=== PATIENT | male | born 1975 | race Caucasian/White ===

== ENCOUNTER 2023-03-19 06:19 | Emergency (ER) | payer BC, SELFPAY ==
[2023-03-19] VITALS (16 sets, daily range): BP systolic 118–161; BP diastolic 76–101; PULSE 108–118; RESP 17–20; TEMP 36.6; O2SAT 94–100
--- NOTE | ~2023-03-19 | CT_ITS ---
CT of the Abdomen and Pelvis: Indication: Perineal abscess Technique: 2.5 mm axial scans were obtained through the abdomen and pelvis following intravenous adm inistration of 100 cc of Omnipaque 350. Dose reduction technique was used on this scan by utilizing a utomated exposure control and iterative reconstruction technique. The dose-length product (DLP) was 1 576.02 mGy-cm. Findings: Scans through the lung bases are unremarkable. The liver, spleen, pancreas, adrenals and kidneys are within normal limits. Gallbladder is absent. No evidence of aortic aneurysm. No lymphadenopathy. No bowel obstruction or bowel wall thickening. There is no evidence to suggest acute appendicitis. Images through the pelvis were performed. Urinary bladder unremarkable. Prostate gland and seminal ve sicles are unremarkable. Fat-containing inguinal hernia is present. No ascites. There is extensive soft tissue gas in the left perineum, focally extending into the left hemiscrotum, with extensive sounding soft tissue infiltration. No drainable fluid collection clearly evident. Impression: Extensive soft tissue gas in the left perineum focally extending to the left hemiscrotum with surroun ding soft tissue infiltration. 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 Fat-containing left inguinal hernia. Case discussed with the [facility] emergency room doctor the time of this reading. Reviewed, dictated and finalized at location . Impression: Extensive soft tissue gas in the left perineum focally extending to the left he miscrotum with surrounding soft tissue infiltration. Findings are consistent wi th Mamie's gangrene. Fat-containing left inguinal hernia. Case discussed with the [facility] emergency room doctor the time of this reading .
--- NOTE | 2023-03-19 06:29 | ED.GENADULT ---
HPI - General Adult General Chief complaint: Skin/Abscess/Foreign Body Stated complaint: Abcess Time Seen by Provider: 03/19/23 06:21 History of Present Illness HPI narrative: Richard is a previously healthy 47M (but has not seen a healthcare provider in 10 years) that presented to the ED with pain and swelling in his groin. It started as a dime sized lesion 2 days ago and has enlarged to the size of a large orange. He has had fevers up to 101, increasing pain, swelling and redness as well as nausea. He has been taking Tylenol for the pain. Related Data Home Medications Medication Instructions Recorded Confirmed No Home Medications 03/19/23 03/19/23 Allergies Allergy/AdvReac Type Severity Reaction Status Date / Time No Known Allergies Allergy Unverified 06/19/14 09:56 Review of Systems Review of Systems: All systems reviewed & are unremarkable except as noted in HPI and below PMFSH Family History Family History (Updated 06/03/14 @ 08:52 by DOCTOR UNKNOWN) Father Family history of thyroid disease Other Family history of malignant neoplasm Social History Social History Smoking status: Current every day smoker Alcohol intake: current Exam Const: General: healthy appearing and no acute distress Nutritional Appearance: well nourished Orientation/consciousness: patient oriented x3 HENMT: Head: normal to inspection Ears: external ears normal and TM's normal bilaterally Face/Nose/Sinus: Normal external nose present Face and sinus: normal facial exam Eyes: Conjunctivae: conjunctivae normal Pupils: Equal, round and reactive pupils present EOM: EOMs intact bilaterally Neck: Neck: normal visual inspection Chest: Chest palpation & inspection: normal inspection of the chest Resp: Effort & Inspection: tachypneic Auscultation: clear to auscultation bilaterally Cardio: Rate: tachycardic Rhythm: regular rhythm : Other: Swollen scrotum. Left groin/perineum was swollen, erythematous and TTP Skin: Other: Erythema and swelling in the left groin and scrotum Neuro: General: patient oriented x3 and moves all extremities Cranial nerves: Yes Nystagmus not present Speech: normal speech Extrem: General: normal to inspection Psych: Mental Status: mental status grossly normal Course Course Emergency Course: Ordered labs, blood cultures, CT, normal saline, and antibiotics with high concern for sepsis. Care transferred to Dr. Gonzales at 0700 Vital Signs Vital signs: Vital Signs Temperature 97.9 F 03/19/23 06:21 Pulse Rate 118 H 03/19/23 06:21 Respiratory Rate 20 03/19/23 06:21 Blood Pressure 130/99 H 03/19/23 06:21 Pulse Oximetry 100 03/19/23 06:21 Oxygen Delivery Room Air 03/19/23 06:21 Temperature 97.9 F 03/19/23 10:57 Pulse Rate 113 H 03/19/23 10:57 Respiratory Rate 17 03/19/23 10:57 Blood Pressure 145/93 H 03/19/23 10:57 Pulse Oximetry 94 03/19/23 10:57 Oxygen Delivery Room Air 03/19/23 10:57 Medical Decision Making Vital Signs Vital Signs: Vital Signs Temperature 97.9 F 03/19/23 06:21 Pulse Rate 118 H 03/19/23 06:21 Respiratory Rate 20 03/19/23 06:21 Blood Pressure 130/99 H 03/19/23 06:21 Pulse Oximetry 100 03/19/23 06:21 Oxygen Delivery Room Air 03/19/23 06:21 Temperature 97.9 F 03/19/23 10:57 Pulse Rate 113 H 03/19/23 10:57 Respiratory Rate 17 03/19/23 10:57 Blood Pressure 145/93 H 03/19/23 10:57 Pulse Oximetry 94 03/19/23 10:57 Oxygen Delivery Room Air 03/19/23 10:57 Lab Data 03/19/23 06:31 03/19/23 09:40 Labs: Lab Results 03/19/23 03/19/23 03/19/23 Range/Units 06:22 06:31 07:45 WBC 25.2 H* (4.8-10.8) K/mm3 RBC 5.21 (4.70-6.10) M/mm3 Hgb 15.1 (14.0-18.0) g/dL Hct 43.7 (40.0-54.0) % MCV 83.9 (78.0-102.0) fL MCH 29.0 (27.0-31.0) pg MCHC 34.6 (32.0-36.0) g/dL RDW 12.8 (11.6-14.4) % Plt C
[2023-03-19] MEDS: ONDANSETRON HCL ODT 4 MG TABLET PO (06:32)
[2023-03-19] MEDS: SODIUM CHLORIDE 0.9% IV 1,000 ML 999 ML IV CONT ×3 (06:33→08:12)
[2023-03-19] MEDS: MORPHINE SULFATE (*CRX) 4 MG/ML INJ IV PUSH ×2 (06:33→08:52)
[2023-03-19 06:45] LABS: Hematocrit 43.7 % (40.0-54.0); Hemoglobin 15.1 g/dL (14.0-18.0); Mean Corpuscular HGB Conc 34.6 g/dL (32.0-36.0); Mean Corpuscular Volume 83.9 fL (78.0-102.0); Mean Platelet Volume 10.8 fl (8.7-11.0); Platelet Count Result 219 K/mm3 (150-420); Red Blood Count 5.21 M/mm3 (4.70-6.10); Red Cell Distribution Width 12.8 % (11.6-14.4)
[2023-03-19] MEDS: PIPERACILLN/TAZ 3.375GM/NS50ML 3.375 GM/50 ML BAG IVPB (06:46)
[2023-03-19 06:48] LABS: White Blood Count 25.2 K/mm3 (4.8-10.8)
[2023-03-19 06:57] LABS: Alanine Aminotransferase 23 U/L (16-63); Albumin Level 2.9 g/dL (3.4-5.0); Alkaline Phosphatase 115 U/L (46-116); Anion Gap 19 mmol/L (8-16); Aspartate Amino Transferase < 10 U/L (15-37); Bilirubin,Total 0.9 mg/dL (0.00-1.00); Blood Urea Nitrogen 9 mg/dL (7-18); Calcium 9.2 mg/dL (8.5-10.1); Carbon Dioxide 17 mmol/L (21-32); Chloride 92 mmol/L (98-108); Estimated CRCL calculation 98 ml/min; Estimated Glomerular Filt Rate > 60; Glucose 359 mg/dL (70-99); Osmolality Calculated 278 mOsm/kg (285-295); Potassium 3.9 mmol/L (3.5-5.1); Sodium 128 mmol/L (136-145); Total Protein 7.9 g/dL (6.4-8.2)
[2023-03-19 07:00] LABS: Band Neutrophils Percent 1 % (0-6); Basophils Percent Manual 0 % (0-1); Eosinophils Percent Manual 0 % (1-6); Lymphocytes Absolute Manual 2.01 K/mm3 (1.1-4.5); Lymphocytes Percent Manual 8 % (18-44); Monocytes Absolute Manual 1.51 K/mm3 (0.1-0.90); Monocytes Percent Manual 6 % (3-9); Neutrophils Absolute Manual 21.67 K/mm3 (1.3-6.7); Neutrophils Percent Manual 85 % (46-73); Platelet Estimate Adequate (Adequate); Schistocytes None Seen (NORMAL); Total Cells Counted 100
[2023-03-19 07:02] LABS: Lactic Acid Reflex 1.5 mmol/L (0.4-2.0)
[2023-03-19 07:12] LABS: CRP > 25.0 mg/dL (0.0-0.9)
--- NOTE | 2023-03-19 07:34 | ED.GENADULT ---
HPI - General Adult General Chief complaint: Skin/Abscess/Foreign Body Stated complaint: Abcess Time Seen by Provider: 03/19/23 06:21 History of Present Illness HPI narrative: I TOOK OVER FROM THE PREVIOUS PROVIDER IN THE MANAGEMENT OF THIS PATIENT. PLEASE REFER TO THE NOTE FOR FURTHER DETAILS. In brief, the patient is a previously healthy 47 year old male who has not seen a healthcare provider in 10 years. He has borderline diabetes. He smokes cigarettes. He has had a prior cholecystectomy and right arm orthopedic surgery. He presented to our ED with pain and swelling in his left scrotum and groin area that started as a dime sized lesion 2 days ago and subsequently has enlarged to the size of a large orange. He has had fevers up to 101 degrees Fahrenheit, increasing pain, swelling and redness as well as nausea.? There is no drainage from the area. The patient has had prior abscesses/boils that he has popped; none have required surgical debridement or drainage in a healthcare facility. The patient received Zosyn and vancomycin in the emergency room. He was tachycardic but not hypotensive, heart rate 118. IV fluids 1 L was administered. Labs and CT were signed out to me. See results below. Related Data Home Medications Medication Instructions Recorded Confirmed No Home Medications 03/19/23 03/19/23 Allergies Allergy/AdvReac Type Severity Reaction Status Date / Time No Known Allergies Allergy Unverified 06/19/14 09:56 Review of Systems Review of Systems: All systems reviewed & are unremarkable except as noted in HPI and below Constitutional: Constitutional: Denies chills, Denies excessive sweating, Denies fatigue, Reports fever(s), Denies headache(s) and Denies weakness Eyes: Eyes: Denies change in vision and Denies photophobia ENT: Denies dysphagia, Denies dizziness, Denies headache(s), Denies lip swelling, Denies nasal congestion, Denies sore throat and Denies tongue swelling Cardiovascular: Cardiovascular: Denies chest pain, Denies syncope, Denies rapid heart rate and Denies dyspnea Respiratory: Respiratory: Denies cough, Denies dyspnea and Denies wheezing Gastrointestinal: Gastrointestinal: Denies abdominal pain, Denies constipation, Denies dysphagia, Denies diarrhea, Denies nausea and Denies vomiting Genitourinary: Genitourinary: Denies hematuria, Denies dysuria, Denies urinary frequency and Denies urinary urgency Musculoskeletal: Musculoskeletal: Denies back pain, Denies myalgias, Denies arthralgias, Denies joint swelling and Denies numbness Integumentary/Breasts: Skin/Breast: Denies pruritus, Reports erythema (in left groin/scrotum area) and Denies rash Neurologic: Denies confusion, Denies dizziness, Denies syncope, Denies headache(s), Denies focal weakness, Denies numbness and Denies weakness Psychiatric: Psychiatric: Denies anxiety and Denies confusion Endocrine: Endocrine: Denies excessive sweating and Denies fatigue Hematologic/Lymphatic: Hematologic/Lymphatic: Denies easy bleeding and Denies easy bruising Allergic/Immunologic: Allergic/Immunologic: Denies lip swelling, Denies tongue swelling and Denies wheezing PMFSH Family History Family History (Updated 06/03/14 @ 08:52 by DOCTOR UNKNOWN) Father Family history of thyroid disease Other Family history of malignant neoplasm Social History Social History Smoking status: Current every day smoker Alcohol intake: current Exam Const: General: healthy appearing, no acute distress, alert, well nourished and obese (weight 121 kg) Nutritional Appearance: well nourished Orientation/consciousness: patient oriented x3 Limitations: no limitations HENMT: Head: normal to inspection Ears: external ears normal Face/Nose/Sinus: normal facial exam Face and sinus: normal facial exam Mouth: Yes moist mucous membranes Throat: posterior oropharynx normal Eyes: Conjunctivae: conjunctivae normal Pupils: Equal, round and reactive pupils pre
[2023-03-19] MEDS: VANCOMYCIN 1,250 MG/NS 250 ML 1,250 MG/250 ML BAG 166.67 MG IVPB ×2 (07:44→09:08)
[2023-03-19 07:47] LABS: Glucose Point of Care 305 mg/dl (65-105)
[2023-03-19] MEDS: CLINDAMYCIN 600 MG/D5W 50 ML 600 MG/50 ML PIGGYBACK 100 MG IVPB (08:12)
[2023-03-19 08:28] LABS: Acetone Small (Negative)
[2023-03-19 08:49] LABS: Appearance Urine Clear (Clear); Bilirubin Urine Negative (Negative); Blood Urine 1+ (Negative); Color Urine Light Yellow (Yellow); Glucose Urine UA 3+ (Negative); Ketones Urine 3+ (Negative); Leukocyte Esterase Ur Negative LEU/UL (Negative); Nitrate Urine Negative (Negative); Protein Urine 2+ (Negative); Specific Grav Ur 1.015 (1.010-1.020); Urobilinogen Urine 0.2 mg/dL (0.2-1.0)
[2023-03-19 08:55] LABS: Add Urine Microscopic? YES; RBC Urine 0-2 /hpf (0-2); Squamous Epithelial Cell Urine Few /hpf (Few); WBC Urine 0-3 /hpf (0-3)
[2023-03-19 08:56] LABS: Bacteria Urine 1+ /hpf; Hyaline Casts Urine Present /lpf
[2023-03-19 09:11] LABS: Glucose Point of Care 308 mg/dl (65-105)
[2023-03-19] MEDS: INSULIN HUMAN REGULAR (*BKC) 1,000 UNITS/10 ML VIAL 7 UNITS IV PUSH (09:12)
[2023-03-19 09:17] LABS: Erythrocyte Sedimentation Rate 11 mm/hr (0-15)
[2023-03-19 09:46] LABS: Device ROOM AIR; HCO3 VBG 19.8 mEq/l (24.0-30.0); PCO2 VBG 31.9 mmHg (42.0-48.0); pH VBG 7.41 (7.33-7.43)
[2023-03-19 09:47] LABS: Glucose Point of Care 269 mg/dl (65-105)
[2023-03-19 10:00] LABS: Alanine Aminotransferase 22 U/L (16-63); Albumin Level 2.5 g/dL (3.4-5.0); Alkaline Phosphatase 99 U/L (46-116); Anion Gap 13 mmol/L (8-16); Aspartate Amino Transferase 14 U/L (15-37); Bilirubin,Total 0.7 mg/dL (0.00-1.00); Blood Urea Nitrogen 7 mg/dL (7-18); Calcium 8.4 mg/dL (8.5-10.1); Carbon Dioxide 21 mmol/L (21-32); Chloride 99 mmol/L (98-108); Estimated CRCL calculation 118 ml/min; Estimated Glomerular Filt Rate > 60; Glucose 271 mg/dL (70-99); Osmolality Calculated 284 mOsm/kg (285-295); Potassium 3.7 mmol/L (3.5-5.1); Sodium 133 mmol/L (136-145); Total Protein 6.8 g/dL (6.4-8.2)
[2023-03-19] MEDS: SODIUM CHLORIDE 0.9% IV 250 ML BAG 500 ML IVPB (10:21)
[2023-03-19] MEDS: SODIUM CHLORIDE 0.9% IV 1,000 ML 150 ML IV CONT (10:22)
[2023-03-19 10:48] LABS: Glucose Point of Care 250 mg/dl (65-105)
[2023-03-19 18:24] LABS: Procalcitonin 0.5 ng/mL
--- NOTE | 2023-03-25 12:53 | PC.NURSE ---
FINAL BLOOD CULTURE REPORT: NO GROWTH AFTER 5 DAYS, NO FURTHER TREATMENT OR ACTION NEEDED.
--- NOTE | 2023-03-27 12:40 | PC.NURSE ---
FINAL BLOOD CULTURE RESULTS X2: NO GROWTH AFTER 5 DAYS. NO ACTION NEEDED.
== END 2023-03-19 10:57 | disposition short-term general hospital (02) ==
PROVIDERS: Family Medicine; Emergency Provider Emergency Medicine; PCP Internal Medicine
DX: N49.3 Fournier gangrene (principal); E11.65 Type 2 diabetes mellitus with hyperglycemia; E87.1 Hypo-osmolality and hyponatremia; E11.10 Type 2 diabetes mellitus with ketoacidosis without coma
CPT/HCPCS: 36415; 74177; 80053; 81001; 82010; 82803; 82948; 83605; 84145; 85025; 85652; 86140; 87040; 96361; 96365; 96366; 96367; 96375; 96376; 99291; A9270; J1815; J2270; J2543; J3370; J7030; J7050; Q9967

== ENCOUNTER 2023-08-22 19:37 | Emergency (ER) | payer BC, SELFPAY ==
--- NOTE | ~2023-08-22 | CT_ITS ---
EXAMINATION: CT lumbar spine wo con DATE: 08/22/2023 21:50 INDICATION: low back pain with sciatica . TECHNIQUE: Computed tomography (CT) of the lumbar spine was performed without intravenous contrast. A utomated exposure control and iterative reconstruction technique were employed. The dose-length produ ct was 1446.43 mGy-cm. COMPARISON: CT abdomen pelvis 03/19/2023. FINDINGS: Mild lumbar scoliosis. 5 nonrib-bearing lumbar-type vertebral bodies. Pedicles intact. Norm al vertebral body alignment. Vertebral body heights preserved. Multilevel disc space narrowing and ma rginal osteophytosis. Vacuum phenomenon at L4-5. Multilevel moderate facet hypertrophy and sclerosis. Multilevel moderate bilateral neural foraminal narrowing and central canal narrowing. Simple right u pper pole cyst. Punctate nonobstructing left lower pole calcification. Subcentimeter nodular focus in the left adrenal gland, likely adenoma. IMPRESSION: No acute fracture or traumatic malalignment in the lumbar spine. Multilevel moderate degenerative disc disease and facet arthropathy, with multilevel moderate bilater al neural foraminal narrowing and moderate central canal narrowing secondary to degenerative changes. Reviewed, dictated and finalized at location K. IMPRESSION: No acute fracture or traumatic malalignment in the lumbar spine. Multilevel moderate degenerative disc disease and facet arthropathy, with multi level moderate bilateral neural foraminal narrowing and moderate central canal narrowing secondary to degenerative changes.
[2023-08-22 19:45] VITALS: BP 144/101; PULSE 111; RESP 18; TEMP 36.2; O2SAT 98
--- NOTE | 2023-08-22 20:33 | ED.BACK ---
HPI - Back Pain/Injury General Chief Complaint: Back Pain/Injury Stated Complaint: back pain Source: patient Mode of arrival: ambulatory Limitations: no limitations History of Present Illness HPI Narrative: 47-year-old male with a history of diabetes mellitus,necrotizing fascitis status post surgery 6 weeks ago presents to the ER with a 2 day history of -- left lower back pain which radiates to the left anterior thigh. Pain is worse with standing and movement. No fever or chills. No bladder or bowel involvement. No history of trauma MD elicited complaint: back pain Onset (ago): day(s) ( started 2 days ago) Timing: constant Severity: severe Similar Symptoms Previously: No Quality: aching Location: lumbar spine Radiation: left upper leg Exacerbating factors: movement and sitting upright Relieving factors: none Associated symptoms: denies other symptoms and difficulty walking Work related injury: No Related Data Home Medications Medication Instructions Recorded Confirmed blood-glucose meter (OneTouch 08/22/23 08/22/23 Ultra2 Meter) insulin glargine 100 unit/mL 20 unit subcut ONCE 08/22/23 08/22/23 subcutaneous solution (Lantus U-100 Insulin) insulin lispro 100 unit/mL See Rx Instructions .Route .COMPLEX 08/22/23 subcutaneous solution (Humalog U-100 Insulin) lancets 30 gauge (OneTouch Delica 08/22/23 08/22/23 Plus Lancet) rosuvastatin 10 mg tablet (Crestor) 10 mg PO DAILY 08/22/23 08/22/23 Allergies Allergy/AdvReac Type Severity Reaction Status Date / Time No Known Allergies Allergy Verified 08/22/23 22:00 Review of Systems Review of Systems: All systems reviewed & are unremarkable except as noted in HPI and below Constitutional: Constitutional: Reports as per HPI and Reports no additional constitutional complaints Eyes: Eyes: Reports as per HPI and Reports no additional eye complaints ENT: Reports system reviewed and no additional complaints, except as documented and Reports as per HPI Cardiovascular: Cardiovascular: Reports as per HPI and Reports no additional cardiovascular complaints Respiratory: Respiratory: Reports as per HPI and Reports no additional respiratory complaints Gastrointestinal: Gastrointestinal: Reports as per HPI Genitourinary: Genitourinary: Reports no additional male genitourinary complaints and Reports as per HPI Musculoskeletal: Musculoskeletal: Reports no additional musculoskeletal complaints and Reports as per HPI Comments: low back pain radiating to the left buttock and left anterior thigh Integumentary/Breasts: Skin/Breast: Reports system reviewed and no additional complaints, except as docu and Reports as per HPI Neurologic: Reports system reviewed and no additional complaints, except as documented and Reports as per HPI Psychiatric: Psychiatric: Reports no additional psychiatric complaints and Reports as per HPI Endocrine: Endocrine: Reports no additional endocrine complaints and Reports as per HPI Hematologic/Lymphatic: Hematologic/Lymphatic: Reports no additional hematologic/lymphatic complaints and Reports as per HPI Allergic/Immunologic: Allergic/Immunologic: Reports no additional allergic/immunologic complaints and Reports as per HPI PMFSH Past Medical History Medical History (Updated 08/22/23 @ 23:03 by Kwaku Freire MD) Diabetes mellitus Necrotizing fasciitis Family History Family History (Updated 06/03/14 @ 08:52 by DOCTOR UNKNOWN) Father Family history of thyroid disease Other Family history of malignant neoplasm Social History Social History Smoking status: Current every day smoker Alcohol intake: current Exam Const: General: healthy appearing Nutritional Appearance: well nourished Orientation/consciousness: patient oriented x3 Limitations: no limitations HENMT: Head: normal to inspection Ears: external ears normal Face/Nose/Sinus: Normal external nose present Face and sinus: normal f
--- NOTE | 2023-08-22 21:55 | PC.NURSE ---
PATIENT AWAKE AND ALERT, SPOUSE AT BEDSIDE. DENIES CURRENT NEEDS. AWAITING RESULTS OF IMAGING. RN MONITORING.
[2023-08-22 22:18] LABS: Basophils Absolute Auto 0.11 K/mm3 (0.00-0.10); Basophils Percent Auto 0.8 % (0.0-1.0); Eosinophils Absolute Auto 0.21 K/mm3 (0.02-0.50); Eosinophils Percent Auto 1.4 % (1.0-6.0); Hematocrit 45.9 % (40.0-54.0); Hemoglobin 15.3 g/dL (14.0-18.0); Immature Granulocyte Absolute 0.08 K/mm3 (0.00-0.00); Immature Granulocyte Percent A 0.6 % (0.0-0.0); Lymphocytes Absolute Auto 5.72 K/mm3 (1.10-4.50); Lymphocytes Percent Auto 39.3 % (18.0-42.0); Mean Corpuscular HGB Conc 33.3 g/dL (32-36); Mean Corpuscular Hemoglobin 28.2 pg (27.0-31.0); Mean Corpuscular Volume 84.5 fL (78.0-102.0); Mean Platelet Volume 9.8 fl (8.7-11.0); Monocytes Absolute Auto 0.78 K/mm3 (0.10-0.90); Monocytes Percent Auto 5.4 % (2.0-11.0); Neutrophils Absolute Auto 7.64 K/mm3 (1.70-7.20); Neutrophils Percent Auto 52.5 % (50.0-70.0); Platelet Count Result 286 K/mm3 (150-420); Red Blood Count 5.43 M/mm3 (4.70-6.10); Red Cell Distribution Width 13.4 % (11.6-14.4); White Blood Count 14.5 K/mm3 (4.8-10.8)
[2023-08-22 22:22] LABS: Appearance Urine Clear (Clear); Bilirubin Urine Negative (Negative); Blood Urine Negative (Negative); Color Urine Yellow (Yellow); Glucose Urine UA Negative (Negative); Ketones Urine Negative (Negative); Leukocyte Esterase Ur Negative LEU/UL (Negative); Nitrate Urine Negative (Negative); Protein Urine 1+ (Negative); Specific Grav Ur >= 1.030 (1.010-1.020); Urobilinogen Urine 0.2 mg/dL (0.2-1.0)
[2023-08-22 22:27] LABS: Add Urine Microscopic? YES; Bacteria Urine Trace /hpf; Mucus Urine Few /lpf; RBC Urine 0-2 /hpf (0-2); Squamous Epithelial Cell Urine Rare /hpf (Few); WBC Urine 0-3 /hpf (0-3)
--- NOTE | 2023-08-22 22:29 | PC.NURSE ---
PATIENT VISITOR GIVEN CHIPS AND DRINK, PATIENT DENIES FURTHER NEEDS, AWAITING RESULTS AND PLAN. NAD.
[2023-08-22 22:38] LABS: Alanine Aminotransferase 28 U/L (16-63); Albumin Level 3.5 g/dL (3.4-5.0); Alkaline Phosphatase 100 U/L (46-116); Anion Gap 13 mmol/L (4-12); Aspartate Amino Transferase < 10 U/L (15-37); Bilirubin,Total 0.3 mg/dL (0.00-1.00); Blood Urea Nitrogen 14 mg/dL (7-18); Carbon Dioxide 25 mmol/L (21-32); Chloride 101 mmol/L (98-108); Estimated CRCL calculation 118 ml/min; Estimated Glomerular Filt Rate > 60; Glucose 124 mg/dL (70-99); Osmolality Calculated 289 mOsm/kg (285-295); Potassium 3.8 mmol/L (3.5-5.1); Sodium 139 mmol/L (136-145); Total Protein 7.5 g/dL (6.4-8.2)
[2023-08-22 23:15] VITALS: BP 155/110; PULSE 115; RESP 18; TEMP 36.2; O2SAT 98
== END 2023-08-22 23:20 | disposition home or self-care (01) ==
PROVIDERS: Emergency Provider Internal Medicine Critical Care Medicine
DX: M54.32 Sciatica, left side (principal); E11.9 Type 2 diabetes mellitus without complications; Z79.4 Long term (current) use of insulin
CPT/HCPCS: 36415; 72131; 80053; 81001; 85025; 99284

== ENCOUNTER 2023-09-07 15:07 | Outpatient (CLI) | payer BC, SELFPAY ==
[2023-09-07 15:28] LABS: Basophils Absolute Auto 0.08 K/mm3 (0.00-0.10); Basophils Percent Auto 0.7 % (0.0-1.0); Eosinophils Absolute Auto 0.12 K/mm3 (0.02-0.50); Hematocrit 44.2 % (40.0-54.0); Hemoglobin 14.8 g/dL (14.0-18.0); Immature Granulocyte Absolute 0.03 K/mm3 (0.00-0.00); Immature Granulocyte Percent A 0.3 % (0.0-0.0); Lymphocytes Absolute Auto 4.35 K/mm3 (1.10-4.50); Lymphocytes Percent Auto 36.3 % (18.0-42.0); Mean Corpuscular HGB Conc 33.5 g/dL (32-36); Mean Corpuscular Hemoglobin 28.5 pg (27.0-31.0); Mean Corpuscular Volume 85.2 fL (78.0-102.0); Mean Platelet Volume 10.2 fl (8.7-11.0); Monocytes Absolute Auto 0.63 K/mm3 (0.10-0.90); Monocytes Percent Auto 5.3 % (2.0-11.0); Neutrophils Absolute Auto 6.76 K/mm3 (1.70-7.20); Neutrophils Percent Auto 56.4 % (50.0-70.0); Platelet Count Result 274 K/mm3 (150-420); Red Blood Count 5.19 M/mm3 (4.70-6.10); Red Cell Distribution Width 13.1 % (11.6-14.4)
[2023-09-07 15:47] LABS: Hemoglobin A1C 7.2 % (<5.7)
[2023-09-07 16:36] LABS: Alanine Aminotransferase 51 U/L (16-63); Alkaline Phosphatase 106 U/L (46-116); Anion Gap 12 mmol/L (4-12); Aspartate Amino Transferase 24 U/L (15-37); Bilirubin,Total 0.4 mg/dL (0.00-1.00); Blood Urea Nitrogen 13 mg/dL (7-18); Calcium 9.3 mg/dL (8.5-10.1); Carbon Dioxide 26 mmol/L (21-32); Chloride 102 mmol/L (98-108); Estimated Glomerular Filt Rate > 60; Glucose 185 mg/dL (70-99); Osmolality Calculated 295 mOsm/kg (285-295); Potassium 4.2 mmol/L (3.5-5.1); Sodium 140 mmol/L (136-145); Total Protein 7.6 g/dL (6.4-8.2)
[2023-09-17 01:58] LABS: Islet Cell Antibody Screen NEGATIVE (NEGATIVE)
== END 2023-09-07 15:08 | disposition home or self-care (01) ==
LOC: CHSLAB 15:10
PROVIDERS: PCP Family Medicine; Visit Provider Family Medicine
DX: E11.9 Type 2 diabetes mellitus without complications (principal)
CPT/HCPCS: 36415; 80053; 83036; 85025; 86341